=== PATIENT | male | born 1935 | race Caucasian/White ===

== ENCOUNTER 2016-12-12 10:58 | Day surgery (SDC) | payer MEDICARE, OTHER ==
[2016-12-06 15:21] LABS: HEMATOCRIT 36.5 % (40.0-51.0); HEMOGLOBIN 12.3 g/dL (13.6-17.8)
[2016-12-06 15:37] LABS: BUN (BLOOD UREA NITROGEN) 9 MG/DL (6-23); CALCIUM, SERUM 8.9 MG/DL (8.5-10.4); CHLORIDE, SERUM 105 MMOL/L (96-112); CO2 (CARBON DIOXIDE) 29 MMOL/L (24-34); CREATININE 0.87 MG/DL (0.70-1.30); GFR AFRICAN AMERICAN 94 ML/MIN (>=60); GFR NON AFRICAN AMERICAN 82 ML/MIN (>=60); GLUCOSE, SERUM 108 MG/DL (60-99); POTASSIUM, SERUM 4.2 MMOL/L (3.5-5.3); SODIUM, SERUM 140 MMOL/L (135-148)
--- NOTE | ~2016-12-12 | OP ---
Record Of Operation [facility] [address] [place]. [address] NAME: DANIA FLOOD : 37 STATUS : [facility]#: [id number] AGE: 81 ADM/REG DATE : 12/12/16 MR#: [id number] REPORT SERV DATE: 12/12/16 DICTATED BY: OSEAS ARZOLA III DATE: 12/12/16 REPORT STATUS : Draft TRANSCRIBED BY: MODL DATE: 12/12/16 DATE OF PROCEDURE: 12/12/2016 PREOPERATIVE DIAGNOSIS: Left hydrocele. POSTOPERATIVE DIAGNOSIS: Left spermatocele. PROCEDURE: Left Spermatocelectomy. SURGEON: Oseas Arzola M.D. ANESTHESIA: General. SPECIMEN: Spermatocele sac. FINDINGS: 1100 mL left spermatocele. BLOOD LOSS: 10 mL. INDICATION: Mr. Flood is an 81-year-old, white male with a very large fluid collection in his scrotum. Ultrasound was interpreted as bilateral hydroceles. His exam is more consistent with a left hydrocele alone. Consent is obtained for bilateral hydrocelectomies. DESCRIPTION OF PROCEDURE: After consent was obtained, the patient was identified, taken to the OR and put to sleep. He was positioned in the supine position and prepped and draped in usual fashion. An incision was made in the median raphe and dissection was taken down to the sac. It was then bluntly freed up from the dartos layer. Note that the inferior aspect of the testicle was noted to be outside the cyst consistent with a very large spermatocele. Dissection was carried and continued to free up the spermatocele from the surrounding structures. I was finally able to deliver through the incision. I continued to free it up and then decided to open it up. The fluid was aspirated. It was approximately 1100 mL. The spermatocele sac was then opened and the excess sac was excised and passed off as a specimen. Care was taken to avoid any injury to the cord structures. There was one small area still of sac remained, this was removed down to what appeared to be the neck of the spermatocele, this was clamped with hemostat and tied with 3-0 chromic. That piece of the spermatocele sac was passed off. Hemostasis was obtained with cautery. The testicle was replaced in the left hemiscrotum. The left hemiscrotum was then irrigated. The skin was closed in layers with 3-0 chromic locking suture on the dartos and 4-0 Monocryl on the skin. Dermabond was placed and then a pressure dressing. The patient was awakened and taken to the recovery in stable condition. PH/MODL Oseas Arzola Record Of Operation [place] [id number] [facility] [place]. [address] NAME: DANIA FLOOD : 37 STATUS : [facility] PAT#: [id number] AGE: 81 ADM/REG DATE : 12/12/16 MR#: [id number] REPORT SERV DATE: 12/12/16 DICTATED BY: OSEAS ARZOLA III DATE: 12/12/16 REPORT STATUS : Draft TRANSCRIBED BY: MODL DATE: 12/12/16 Yolanda SNYDER / [id number] CC: Yolanda Samano III, [place]
[~2016-12-12 10:58] MED LIST: NORV5 PO
== END 2016-12-12 17:17 | disposition home or self-care (01) ==
LOC: SDC 10:58
PROVIDERS: Urology
PROC: 0VBK0ZZ Excision of Left Epididymis, Open Approach (ICD-10-PCS; principal; 2016-12-12 12:45)
DX: N43.40 Spermatocele of epididymis, unspecified (principal); I10 Essential (primary) hypertension; N40.0 Benign prostatic hyperplasia without lower urinary tract symptoms; Z79.899 Other long term (current) drug therapy; Z87.891 Personal history of nicotine dependence; Z96.1 Presence of intraocular lens; Z98.41 Cataract extraction status, right eye; Z98.42 Cataract extraction status, left eye; Z90.89 Acquired absence of other organs; Z98.890 Other specified postprocedural states
CPT/HCPCS: 80048; 85014; 85018; 88304; 93005; A9270-GY; J0690; J2370; J2405; J2710; J3010